=== PATIENT | male | born 1950 | race Caucasian/White ===

== ENCOUNTER 2021-07-20 08:41 | Inpatient (IN) ==
[2021-07-20] MEDS ORDERED: 0.9 % Sodium Chloride 1,000 ML IVC ONE ×3 (08:50→09:35)
[2021-07-20] MEDS ORDERED: 0.9 % Sodium Chloride 1,000 ML ONE ×3 (08:54→09:36)
[2021-07-20] MEDS ORDERED: Isovue-370 500 ML BOTTLE IVP ONE (08:59)
[2021-07-20 09:09] LABS: Basophils # 0.1 K/mcL (0.0-0.2); Basophils % 0.3 %; Eosinophils % 0.2 %; Hematocrit 21.6 % (37.5-50.1); Immature Granulocytes % 1.8 % (0-4); Lymphocytes # 1.4 K/mcL (0.6-4.6); Lymphocytes % 7.8 %; Mean Corpuscular HGB Conc 32.4 g/dL (31.6-35.5); Mean Corpuscular Hemoglobin 30.2 pg (28.0-33.3); Mean Corpuscular Volume 93.1 fL (83.0-100.0); Mean Platelet Volume 10.2 fL (9.4-12.4); Monocytes # 1.2 K/mcL (0.0-1.3); Monocytes % 6.5 %; Neutrophils # 15.1 K/mcL (1.6-8.9); Platelet Count 319 K/mcL (140-400); Red Blood Count 2.32 M/mcL (4.19-5.50); Red Cell Distribution Width 17.3 % (11.5-14.5); Segmented Neutrophils % 83.4 %; White Blood Count 18.1 K/mcL (4.3-11.1)
[2021-07-20] MEDS ORDERED: Vancomycin 1,500 MG/265 ML IV.SOLN IVPB ONE (09:35)
[2021-07-20] MEDS ORDERED: Piperacillin/Tazobactam 3.375 GM in 0.9 % Sodium Chloride Mini Bag 100 ML IVPB ONE (09:35)
[2021-07-20 09:44] LABS: Amorphous Sediment,Urine Few per hpf (None-Few); Bacteria,Urine Few per hpf (None-Few); Bilirubin,Urine Moderate (Negative); Blood,Urine Negative (Negative); Clarity,Urine Turbid (Clear); Color,Urine Dark-Yellow (Yellow); Glucose,Urine (UA) Normal (Normal); Hyaline Casts,Urine Few per lpf (None Seen); Ketones,Urine Negative (Negative); Leukocyte Esterase,Urine Negative (Negative); Mucus,Urine Few per lpf (None-Few); Nitrite,Urine Negative (Negative); Protein,Urine Trace mg/dL (Neg-Trace); RBC,Urine 0-3 per hpf (0-3); Specific Gravity,Urine 1.017 (1.010-1.025); Urobilinogen,Urine Normal (Normal); WBC,Urine 0-3 per hpf (0-3)
[2021-07-20] MEDS: Norepinephrine 4 MG/254 ML IV.SOLN IVC SCH ×4 (10:00→21:00)
[2021-07-20 10:02] LABS: Blood Urea Nitrogen > 130 mg/dL (8-23); Calcium 8.4 mg/dL (8.6-10.3); Carbon Dioxide 12 mEq/L (23-29); Chloride 102 mEq/L (98-107); Glucose 179 mg/dL (70-105); Potassium 6.8 mEq/L (3.5-5.1); Sodium 131 mEq/L (136-145); Troponin I 0.04 ng/mL (< 0.04); eGFR For African Americans 10 (> 60); eGFR For Non-African Americans 9 (> 60)
[2021-07-20] MEDS ORDERED: *HR* Dextrose 50 % in Water (Syg) 50 ML SYRINGE IVP ONE (10:09)
[2021-07-20] MEDS ORDERED: Insulin Human Regular 10 UNIT in 0.9 % Sodium Chloride 10 ML IV ONE (10:09)
[2021-07-20] MEDS ORDERED: Sodium Bicarbonate 50 MEQ/50 ML VIAL IVP ONE (10:09)
[2021-07-20 10:21] LABS: Influenza A PCR Negative (Negative); Influenza B PCR Negative (Negative); Resp. Syncytial Virus PCR Negative (Negative)
[2021-07-20 10:52] LABS: SARS-CoV-2 by PCR (In House) Negative (Negative)
[2021-07-20] MEDS ORDERED: 0.9 % Sodium Chloride 1,000 ML PRIME ONE ×2 (11:44)
[2021-07-20] MEDS ORDERED: *HR* Heparin 5,000 UNIT/ML VIAL IVP PRN (11:44)
[2021-07-20] MEDS ORDERED: *HR* Alteplase (Cathflo) 2 MG VIAL IVP PRN (11:44)
[2021-07-20] MEDS ORDERED: PrismaSATE BGK 4/2.5 5,000 ML CRRT SCH ×2 (11:45)
[2021-07-20] MEDS ORDERED: 0.9 % Sodium Chloride 1,000 ML PRIME SCH (11:45)
[2021-07-20] MEDS ORDERED: Naloxone 0.4 MG/ML INJ IVP PRN (12:04)
[2021-07-20] MEDS: *HR* OxyCODONE Immed Rel 5 MG TABLET PO PRN (12:09)
[2021-07-20] MEDS ORDERED: Ringers Solution, Lactated 1,000 ML IVC SCH (12:15)
[2021-07-20] MEDS: Albumin Human 5% 12.5 GM/250 ML IV.SOLN IVC SCH ×2 (12:20→16:14)
[2021-07-20] MEDS ORDERED: NON-FORMULARY MEDICATION 1 EACH EACH (Ipratropium/Albuterol Sulfate 120 PUFF Inhaler) IH SCH (13:00)
[2021-07-20 13:21] LABS: Alanine Aminotransferase 134 Units/L (7-52); Albumin 2.5 g/dL (3.5-5.7); Albumin/Globulin Ratio 0.9 (1.1-2.2); Alkaline Phosphatase 392 Units/L (34-104); Aspartate Amino Transferase 116 Units/L (13-39); Bilirubin,Direct 4.6 mg/dL (0.0-0.2); Bilirubin,Total 6.6 mg/dL (0.3-1.0); Blood Urea Nitrogen > 130 mg/dL (8-23); Calcium 7.1 mg/dL (8.6-10.3); Carbon Dioxide 12 mEq/L (23-29); Chloride 109 mEq/L (98-107); Globulin 2.7 g/dL (2.4-3.5); Glucose 165 mg/dL (70-105); Potassium 5.3 mEq/L (3.5-5.1); Sodium 137 mEq/L (136-145); Total Protein 5.2 g/dL (6.4-8.9); eGFR For African Americans 12 (> 60); eGFR For Non-African Americans 10 (> 60)
[2021-07-20] MEDS: Ondansetron 4 MG/2 ML VIAL IVP PRN (13:26)
[2021-07-20 13:51] LABS: Basophils % 0.1 %; Immature Granulocytes % 1.7 % (0-4); Mean Platelet Volume 10.5 fL (9.4-12.4)
[2021-07-20 13:53] LABS: Hematocrit 16.7 % (37.5-50.1); Lymphocytes # 0.9 K/mcL (0.6-4.6); Lymphocytes % 4.8 %; Mean Corpuscular HGB Conc 32.9 g/dL (31.6-35.5); Mean Corpuscular Hemoglobin 31.1 pg (28.0-33.3); Mean Corpuscular Volume 94.4 fL (83.0-100.0); Monocytes # 1.5 K/mcL (0.0-1.3); Monocytes % 8.1 %; Neutrophils # 15.4 K/mcL (1.6-8.9); Platelet Count 269 K/mcL (140-400); Red Blood Count 1.77 M/mcL (4.19-5.50); Red Cell Distribution Width 17.4 % (11.5-14.5); Segmented Neutrophils % 85.3 %
[2021-07-20 14:05] LABS: Hemoglobin 5.5 g/dL (12.9-16.9)
[2021-07-20] MEDS ORDERED: Sodium Bicarbonate 150 MEQ in D5% in Water 1,000 ML IVC SCH (14:15)
[2021-07-20] MEDS ORDERED: 0.9 % Sodium Chloride 250 ML ONE ×2 (14:31→19:52)
[2021-07-20 14:45] LABS: Anisocytosis 1+ (Not Present); Hypochromasia Present (Not Present); Platelet Estimate Normal (Normal)
[2021-07-20] MEDS: Ipratropium/Albuterol Neb 3 ML IH SCH ×2 (16:03→20:15)
[2021-07-20] MEDS ORDERED: Famotidine 20 MG/2 ML VIAL IVP SCH (18:00)
[2021-07-20] MEDS ORDERED: Prochlorperazine 10 MG/2 ML VIAL IVP PRN (18:21)
[2021-07-20] MEDS ORDERED: Chloraseptic Spray 177 ML BOTTLE MM PRN (18:35)
[2021-07-20 19:16] LABS: Hematocrit 18.3 % (37.5-50.1)
[2021-07-20] MEDS ORDERED: Pantoprazole 40 MG VIAL IVP SCH (19:20)
[2021-07-20] MEDS: Budesonide/Formoterol 160/4.5 1 PUFF INH IH SCH (20:14)
[2021-07-20] MEDS: Sodium Bicarbonate 150 MEQ in D5% in Water 1,000 ML IVC SCH (20:24)
[2021-07-20] MEDS ORDERED: Calcium Gluconate 1gm/50mL 1 GM/50 ML BAG IVPB ONE (20:38)
[2021-07-21] MEDS: Norepinephrine 4 MG/254 ML IV.SOLN IVC SCH ×6 (00:19→21:07)
[2021-07-21 00:45] LABS: Hemoglobin 6.4 g/dL (12.9-16.9)
[2021-07-21 01:18] LABS: Blood Urea Nitrogen > 130 mg/dL (8-23); Calcium 7.1 mg/dL (8.6-10.3); Carbon Dioxide 15 mEq/L (23-29); Chloride 111 mEq/L (98-107); Glucose 186 mg/dL (70-105); Potassium 5.5 mEq/L (3.5-5.1); Sodium 137 mEq/L (136-145); eGFR For African Americans 13 (> 60); eGFR For Non-African Americans 10 (> 60)
[2021-07-21] MEDS ORDERED: 0.9 % Sodium Chloride 1,000 ML IVC ONE (01:41)
[2021-07-21] MEDS: Albumin Human 5% 12.5 GM/250 ML IV.SOLN IVC SCH ×2 (03:08→07:19)
[2021-07-21] MEDS: Ipratropium/Albuterol Neb 3 ML IH SCH ×4 (03:46→20:02)
[2021-07-21] MEDS ORDERED: Octreotide 50 MCG/ML INJ IVP ONE (03:56)
[2021-07-21] MEDS: Octreotide 400 MCG in 0.9 % Sodium Chloride 100 ML IVC SCH ×2 (04:58→20:30)
[2021-07-21 05:38] LABS: VBG Ionized Calcium 0.98 mmol/L (1.15-1.35)
[2021-07-21 05:41] LABS: Basophils # 0.1 K/mcL (0.0-0.2); Basophils % 0.2 %; Eosinophils % 0.1 %; Hematocrit 18.5 % (37.5-50.1); Hemoglobin 6.2 g/dL (12.9-16.9); Immature Granulocytes % 2.4 % (0-4); Lymphocytes # 0.9 K/mcL (0.6-4.6); Lymphocytes % 4.2 %; Mean Corpuscular HGB Conc 33.5 g/dL (31.6-35.5); Mean Corpuscular Volume 89.4 fL (83.0-100.0); Mean Platelet Volume 10.4 fL (9.4-12.4); Monocytes % 9.7 %; Neutrophils # 17.3 K/mcL (1.6-8.9); Nucleated Red Blood Cells 0.5 /100 WBC (0); Platelet Count 238 K/mcL (140-400); Red Blood Count 2.07 M/mcL (4.19-5.50); Red Cell Distribution Width 16.6 % (11.5-14.5); Segmented Neutrophils % 83.4 %; White Blood Count 20.8 K/mcL (4.3-11.1)
[2021-07-21] MEDS: Sodium Bicarbonate 150 MEQ in D5% in Water 1,000 ML IVC SCH ×2 (06:01→16:06)
[2021-07-21] MEDS: Pantoprazole 40 MG in 0.9 % Sodium Chloride Mini Bag 100 ML IVC SCH ×4 (06:04→20:52)
[2021-07-21] MEDS: Calcium Gluconate 1gm/50mL 1 GM/50 ML BAG IVPB SCH ×2 (06:34→07:25)
[2021-07-21 07:04] LABS: Alanine Aminotransferase 158 Units/L (7-52); Albumin 2.7 g/dL (3.5-5.7); Albumin/Globulin Ratio 1.2 (1.1-2.2); Alkaline Phosphatase 372 Units/L (34-104); Aspartate Amino Transferase 180 Units/L (13-39); Bilirubin,Total 6.9 mg/dL (0.3-1.0); Blood Urea Nitrogen > 130 mg/dL (8-23); Calcium 7.1 mg/dL (8.6-10.3); Carbon Dioxide 17 mEq/L (23-29); Chloride 110 mEq/L (98-107); Globulin 2.3 g/dL (2.4-3.5); Glucose 192 mg/dL (70-105); Magnesium 2.1 mg/dL (1.6-2.6); Phosphorous 4.1 mg/dL (2.7-4.5); Potassium 5.1 mEq/L (3.5-5.1); Sodium 139 mEq/L (136-145); eGFR For African Americans 13 (> 60); eGFR For Non-African Americans 11 (> 60)
[2021-07-21] MEDS ORDERED: 0.9 % Sodium Chloride 250 ML ONE ×2 (08:59→17:12)
[2021-07-21] MEDS: Budesonide/Formoterol 160/4.5 1 PUFF INH IH SCH ×2 (10:26→20:02)
[2021-07-21 11:32] LABS: Phenytoin (Dilantin) < 0.5 mcg/mL (10.0-20.0)
[2021-07-21] MEDS: Phenytoin 100 MG in Equashield Syringe 1 EACH IVP SCH (13:41)
[2021-07-21] MEDS: Cyanocobalamin (B-12) 1,000 MCG TABLET PO SCH (13:50)
[2021-07-21] MEDS: Levothyroxine Sodium 100 MCG VIAL IVP SCH (14:00)
[2021-07-21 15:34] LABS: Hematocrit 18.1 % (37.5-50.1); Hemoglobin 6.2 g/dL (12.9-16.9)
[2021-07-21 15:48] LABS: Blood Urea Nitrogen > 130 mg/dL (8-23); Calcium 7.3 mg/dL (8.6-10.3); Carbon Dioxide 22 mEq/L (23-29); Chloride 108 mEq/L (98-107); Glucose 215 mg/dL (70-105); Potassium 4.6 mEq/L (3.5-5.1); Sodium 141 mEq/L (136-145); eGFR For African Americans 14 (> 60); eGFR For Non-African Americans 11 (> 60)
[2021-07-22 00:38] LABS: VBG Ionized Calcium 0.97 mmol/L (1.15-1.35)
[2021-07-22] MEDS ORDERED: Calcium Chloride 2,000 MG in 0.9 % Sodium Chloride 100 ML IVPB ONE (00:48)
[2021-07-22 00:54] LABS: Blood Urea Nitrogen > 130 mg/dL (8-23); Calcium 7.1 mg/dL (8.6-10.3); Carbon Dioxide 23 mEq/L (23-29); Chloride 110 mEq/L (98-107); Glucose 208 mg/dL (70-105); Potassium 4.2 mEq/L (3.5-5.1); Sodium 141 mEq/L (136-145); eGFR For African Americans 15 (> 60); eGFR For Non-African Americans 12 (> 60)
[2021-07-22 00:57] LABS: Hematocrit 21.7 % (37.5-50.1); Hemoglobin 7.1 g/dL (12.9-16.9)
[2021-07-22] MEDS: Phenytoin 100 MG in Equashield Syringe 1 EACH IVP SCH ×2 (00:59→14:53)
[2021-07-22] MEDS: Pantoprazole 40 MG in 0.9 % Sodium Chloride Mini Bag 100 ML IVC SCH ×5 (01:28→21:20)
[2021-07-22] MEDS: Sodium Bicarbonate 150 MEQ in D5% in Water 1,000 ML IVC SCH ×3 (02:07→21:11)
[2021-07-22] MEDS: Ipratropium/Albuterol Neb 3 ML IH SCH ×4 (03:56→22:00)
[2021-07-22 04:47] LABS: Alanine Aminotransferase 201 Units/L (7-52); Albumin 2.5 g/dL (3.5-5.7); Albumin/Globulin Ratio 1.3 (1.1-2.2); Alkaline Phosphatase 404 Units/L (34-104); Aspartate Amino Transferase 240 Units/L (13-39); Bilirubin,Direct 5.3 mg/dL (0.0-0.2); Bilirubin,Total 7.3 mg/dL (0.3-1.0); Blood Urea Nitrogen > 130 mg/dL (8-23); Calcium 8.3 mg/dL (8.6-10.3); Carbon Dioxide 26 mEq/L (23-29); Chloride 108 mEq/L (98-107); Globulin 1.9 g/dL (2.4-3.5); Glucose 192 mg/dL (70-105); Magnesium 1.9 mg/dL (1.6-2.6); Phosphorous 4.9 mg/dL (2.7-4.5); Potassium 4.3 mEq/L (3.5-5.1); Sodium 143 mEq/L (136-145); Total Protein 4.4 g/dL (6.4-8.9); eGFR For African Americans 16 (> 60); eGFR For Non-African Americans 13 (> 60)
[2021-07-22 04:53] LABS: Basophils % 0.2 %; Eosinophils # 0.1 K/mcL (0.0-0.6); Eosinophils % 0.5 %; Hematocrit 20.5 % (37.5-50.1); Hemoglobin 6.7 g/dL (12.9-16.9); Immature Granulocytes % 2.2 % (0-4); Lymphocytes # 0.8 K/mcL (0.6-4.6); Lymphocytes % 4.1 %; Mean Corpuscular HGB Conc 32.7 g/dL (31.6-35.5); Mean Corpuscular Hemoglobin 27.7 pg (28.0-33.3); Mean Corpuscular Volume 84.7 fL (83.0-100.0); Monocytes # 1.5 K/mcL (0.0-1.3); Monocytes % 7.9 %; Neutrophils # 15.8 K/mcL (1.6-8.9); Nucleated Red Blood Cells 0.8 /100 WBC (0); Platelet Count 150 K/mcL (140-400); Red Blood Count 2.42 M/mcL (4.19-5.50); Red Cell Distribution Width 18.1 % (11.5-14.5); Segmented Neutrophils % 85.1 %; White Blood Count 18.6 K/mcL (4.3-11.1)
[2021-07-22] MEDS: Norepinephrine 4 MG/254 ML IV.SOLN IVC SCH ×2 (05:04→16:30)
[2021-07-22] MEDS: Budesonide/Formoterol 160/4.5 1 PUFF INH IH SCH ×2 (07:46→22:01)
[2021-07-22] MEDS ORDERED: 0.9 % Sodium Chloride 250 ML ONE (08:28)
[2021-07-22] MEDS: Cyanocobalamin (B-12) 1,000 MCG TABLET PO SCH (08:46)
[2021-07-22] MEDS: Levothyroxine Sodium 100 MCG VIAL IVP SCH (08:48)
[2021-07-22] MEDS: Octreotide 400 MCG in 0.9 % Sodium Chloride 100 ML IVC SCH (10:57)
[2021-07-22] MEDS: Piperacillin/Tazobactam 3.375 GM in 0.9 % Sodium Chloride Mini Bag 100 ML IVPB SCH ×2 (11:06→23:43)
[2021-07-22] MEDS ORDERED: *HR* FentaNYL (PF) 100 MCG/2 ML VIAL ONE (11:06)
[2021-07-22] MEDS ORDERED: *HR* Propofol 200 MG/20 ML VIAL IVP ONE (11:06)
[2021-07-22] MEDS ORDERED: Lidocaine -MPF 2% 5 ML VIAL ONE (11:07)
[2021-07-22] MEDS ORDERED: Ondansetron 4 MG/2 ML VIAL ONE (11:07)
[2021-07-22] MEDS ORDERED: *HR* Succinylcholine 200 MG/10 ML VIAL IVP ONE (11:07)
[2021-07-22] MEDS ORDERED: Lidocaine HCL 4 ML Topical Solution (Laryng-O-Jet Kit Sterile Pak) TP ONE (11:12)
[2021-07-22 12:26] LABS: INR 24.2
[2021-07-22] MEDS ORDERED: HUM PROTHROMBIN CPLX(PCC)4FACT 5,000 UNIT in Water for inj. (sterile) 200 ML IVPB ONE (12:32)
[2021-07-22 14:42] LABS: INR 17.5; Prothrombin Time 190.6 Seconds (9.4-12.1)
[2021-07-22 14:56] LABS: Activated Partial Thrombo Time 61.7 Seconds (26.0-36.0)
[2021-07-22 18:21] LABS: Basophils % 0.3 %; Eosinophils % 1.1 %; Immature Granulocytes % 2.8 % (0-4); Mean Corpuscular HGB Conc 34.3 g/dL (31.6-35.5); Nucleated Red Blood Cells 0.8 /100 WBC (0)
[2021-07-22 18:23] LABS: Eosinophils # 0.1 K/mcL (0.0-0.6); Hemoglobin 7.2 g/dL (12.9-16.9); Immature Platelets 2.7 % (1.1-6.1); Lymphocytes # 0.6 K/mcL (0.6-4.6); Lymphocytes % 4.5 %; Mean Corpuscular Hemoglobin 28.8 pg (28.0-33.3); Mean Platelet Volume 9.7 fL (9.4-12.4); Monocytes # 0.9 K/mcL (0.0-1.3); Monocytes % 6.9 %; Platelet Count 104 K/mcL (140-400); Red Cell Distribution Width 16.3 % (11.5-14.5); Segmented Neutrophils % 84.4 %
[2021-07-22 18:34] LABS: INR 1.6; Prothrombin Time 18.3 Seconds (9.4-12.1)
[2021-07-22] MEDS: *HR* OxyCODONE Immed Rel 5 MG TABLET PO PRN (19:38)
[2021-07-23] MEDS: Phenytoin 100 MG in Equashield Syringe 1 EACH IVP SCH ×3 (00:07→23:47)
[2021-07-23] MEDS: Pantoprazole 40 MG in 0.9 % Sodium Chloride Mini Bag 100 ML IVC SCH ×5 (02:26→23:46)
[2021-07-23] MEDS: Ipratropium/Albuterol Neb 3 ML IH SCH ×4 (03:34→21:29)
[2021-07-23 04:43] LABS: Basophils % 0.2 %; Eosinophils # 0.2 K/mcL (0.0-0.6); Eosinophils % 1.3 %; Hematocrit 20.9 % (37.5-50.1); Hemoglobin 7.1 g/dL (12.9-16.9); Immature Granulocytes % 2.7 % (0-4); Immature Platelets 3.2 % (1.1-6.1); Lymphocytes # 0.6 K/mcL (0.6-4.6); Lymphocytes % 5.1 %; Mean Corpuscular Hemoglobin 28.6 pg (28.0-33.3); Mean Corpuscular Volume 84.3 fL (83.0-100.0); Mean Platelet Volume 9.7 fL (9.4-12.4); Neutrophils # 10.3 K/mcL (1.6-8.9); Nucleated Red Blood Cells 0.7 /100 WBC (0); Red Blood Count 2.48 M/mcL (4.19-5.50); Red Cell Distribution Width 16.3 % (11.5-14.5); Segmented Neutrophils % 82.7 %; White Blood Count 12.5 K/mcL (4.3-11.1)
[2021-07-23 04:44] LABS: Platelet Count 88 K/mcL (140-400)
[2021-07-23 04:46] LABS: VBG Ionized Calcium 1.02 mmol/L (1.15-1.35)
[2021-07-23 04:49] LABS: INR 1.3; Prothrombin Time 14.1 Seconds (9.4-12.1)
[2021-07-23 05:23] LABS: Albumin 2.6 g/dL (3.5-5.7); Albumin/Globulin Ratio 1.3 (1.1-2.2); Bilirubin,Total 10.1 mg/dL (0.3-1.0); Calcium 7.5 mg/dL (8.6-10.3); Magnesium 1.6 mg/dL (1.6-2.6); Phosphorous 4.1 mg/dL (2.7-4.5); Potassium 3.6 mEq/L (3.5-5.1); Total Protein 4.6 g/dL (6.4-8.9)
[2021-07-23] MEDS: Norepinephrine 4 MG/254 ML IV.SOLN IVC SCH (06:43)
[2021-07-23] MEDS: Sodium Bicarbonate 150 MEQ in D5% in Water 1,000 ML IVC SCH ×2 (06:44→16:20)
[2021-07-23] MEDS: Octreotide 400 MCG in 0.9 % Sodium Chloride 100 ML IVC SCH ×2 (06:50→23:45)
[2021-07-23] MEDS: Levothyroxine Sodium 100 MCG VIAL IVP SCH (07:56)
[2021-07-23] MEDS ORDERED: Calcium Gluconate 1gm/50mL 1 GM/50 ML BAG IVPB ONE (08:59)
[2021-07-23] MEDS: Budesonide/Formoterol 160/4.5 1 PUFF INH IH SCH ×2 (09:44→21:29)
[2021-07-23] MEDS: Cyanocobalamin (B-12) 1,000 MCG TABLET PO SCH (10:35)
[2021-07-23] MEDS: Piperacillin/Tazobactam 3.375 GM in 0.9 % Sodium Chloride Mini Bag 100 ML IVPB SCH ×2 (12:03→23:49)
[2021-07-23] MEDS: Famotidine 20 MG/2 ML VIAL IVP SCH (19:14)
[2021-07-23] MEDS: Ondansetron 4 MG/2 ML VIAL IVP PRN (22:11)
[2021-07-23] MEDS: *HR* OxyCODONE Immed Rel 5 MG TABLET PO PRN (22:11)
[2021-07-24] MEDS: Sodium Bicarbonate 150 MEQ in D5% in Water 1,000 ML IVC SCH (01:32)
[2021-07-24] MEDS: Ipratropium/Albuterol Neb 3 ML IH SCH ×4 (03:23→19:58)
[2021-07-24] MEDS: Famotidine 20 MG/2 ML VIAL IVP SCH ×2 (04:53→17:41)
[2021-07-24] MEDS: Pantoprazole 40 MG in 0.9 % Sodium Chloride Mini Bag 100 ML IVC SCH (04:57)
[2021-07-24 05:10] LABS: Basophils % 0.2 %
[2021-07-24 05:12] LABS: Eosinophils # 0.1 K/mcL (0.0-0.6); Hematocrit 23.7 % (37.5-50.1); Hemoglobin 7.9 g/dL (12.9-16.9); Immature Granulocytes % 2.4 % (0-4); Immature Platelets 6.3 % (1.1-6.1); Lymphocytes # 0.5 K/mcL (0.6-4.6); Lymphocytes % 4.3 %; Mean Corpuscular HGB Conc 33.3 g/dL (31.6-35.5); Mean Corpuscular Hemoglobin 28.9 pg (28.0-33.3); Mean Corpuscular Volume 86.8 fL (83.0-100.0); Mean Platelet Volume 10.8 fL (9.4-12.4); Monocytes % 6.6 %; Neutrophils # 9.7 K/mcL (1.6-8.9); Nucleated Red Blood Cells 0.3 /100 WBC (0); Red Blood Count 2.73 M/mcL (4.19-5.50); Red Cell Distribution Width 16.8 % (11.5-14.5); Segmented Neutrophils % 85.5 %; White Blood Count 11.3 K/mcL (4.3-11.1)
[2021-07-24 05:14] LABS: Monocytes # 0.8 K/mcL (0.0-1.3); Platelet Count 79 K/mcL (140-400)
[2021-07-24 05:22] LABS: INR 1.2; Prothrombin Time 13.2 Seconds (9.4-12.1)
[2021-07-24 05:29] LABS: Albumin 2.6 g/dL (3.5-5.7); Albumin/Globulin Ratio 1.1 (1.1-2.2); Bilirubin,Indirect 3.4 mg/dL (0.0-1.0); Bilirubin,Total 10.4 mg/dL (0.3-1.0); Calcium 7.6 mg/dL (8.6-10.3); Globulin 2.4 g/dL (2.4-3.5); Magnesium 1.8 mg/dL (1.6-2.6); Phosphorous 3.9 mg/dL (2.7-4.5); Potassium 3.2 mEq/L (3.5-5.1)
[2021-07-24 05:54] LABS: VBG Ionized Calcium 1.03 mmol/L (1.15-1.35)
[2021-07-24] MEDS: Ondansetron 4 MG/2 ML VIAL IVP PRN (05:56)
[2021-07-24] MEDS: Levothyroxine Sodium 100 MCG VIAL IVP SCH (07:55)
[2021-07-24] MEDS: Cyanocobalamin (B-12) 1,000 MCG TABLET PO SCH (07:55)
[2021-07-24] MEDS: Budesonide/Formoterol 160/4.5 1 PUFF INH IH SCH ×2 (08:29→19:58)
[2021-07-24] MEDS ORDERED: Pantoprazole 40 MG in 0.9 % Sodium Chloride 50 ML IVPB ONE (09:23)
[2021-07-24] MEDS ORDERED: Pantoprazole 40 MG VIAL IVP SCH (10:30)
[2021-07-24] MEDS: Piperacillin/Tazobactam 3.375 GM in 0.9 % Sodium Chloride Mini Bag 100 ML IVPB SCH (11:28)
[2021-07-24] MEDS: Phenytoin 100 MG in Equashield Syringe 1 EACH IVP SCH (11:37)
[2021-07-24] MEDS ORDERED: Chloraseptic Spray 177 ML BOTTLE MM PRN (11:39)
[2021-07-24] MEDS ORDERED: Naloxone 0.4 MG/ML INJ IVP PRN (11:39)
[2021-07-24] MEDS ORDERED: *HR* OxyCODONE Immed Rel 5 MG TABLET PO PRN (11:39)
[2021-07-24] MEDS ORDERED: Prochlorperazine 10 MG/2 ML VIAL IVP PRN (11:39)
[2021-07-24] MEDS: D5% in 0.45% NACL w KCl 20 MEQ/1,000 ML MLS IVC SCH (12:13)
[2021-07-24 13:01] LABS: Phenytoin (Dilantin) Free <0.5 ug/mL (1.0-2.5)
[2021-07-24] MEDS: Pantoprazole 40 MG VIAL IVP SCH (17:40)
[2021-07-24] MEDS ORDERED: Famotidine 20 MG/2 ML VIAL IVP SCH (20:00)
[2021-07-24] MEDS ORDERED: Piperacillin/Tazobactam 3.375 GM in 0.9 % Sodium Chloride Mini Bag 100 ML IVPB SCH (23:00)
[2021-07-25] MEDS: Phenytoin 100 MG in Equashield Syringe 1 EACH IVP SCH ×3 (00:44→23:25)
[2021-07-25] MEDS: D5% in 0.45% NACL w KCl 20 MEQ/1,000 ML MLS IVC SCH ×2 (00:45→21:20)
[2021-07-25] MEDS: Ipratropium/Albuterol Neb 3 ML IH SCH ×4 (03:54→21:27)
[2021-07-25 04:55] LABS: Basophils % 0.2 %; Red Cell Distribution Width 17.2 % (11.5-14.5); White Blood Count 12.3 K/mcL (4.3-11.1)
[2021-07-25 04:57] LABS: Eosinophils # 0.3 K/mcL (0.0-0.6); Eosinophils % 2.6 %; Hematocrit 24.8 % (37.5-50.1); Hemoglobin 7.8 g/dL (12.9-16.9); Immature Granulocytes % 2.5 % (0-4); Immature Platelets 6.6 % (1.1-6.1); Lymphocytes # 0.6 K/mcL (0.6-4.6); Lymphocytes % 5.1 %; Mean Corpuscular HGB Conc 31.5 g/dL (31.6-35.5); Mean Corpuscular Hemoglobin 28.2 pg (28.0-33.3); Mean Corpuscular Volume 89.5 fL (83.0-100.0); Mean Platelet Volume 10.9 fL (9.4-12.4); Monocytes # 0.8 K/mcL (0.0-1.3); Monocytes % 6.8 %; Neutrophils # 10.2 K/mcL (1.6-8.9); Nucleated Red Blood Cells 0.4 /100 WBC (0); Platelet Count 102 K/mcL (140-400); Red Blood Count 2.77 M/mcL (4.19-5.50); Segmented Neutrophils % 82.8 %
[2021-07-25] MEDS: Famotidine 20 MG/2 ML VIAL IVP SCH (05:08)
[2021-07-25] MEDS: Pantoprazole 40 MG VIAL IVP SCH ×2 (05:08→17:17)
[2021-07-25 05:15] LABS: Albumin 2.6 g/dL (3.5-5.7); Bilirubin,Total 10.5 mg/dL (0.3-1.0); Globulin 2.6 g/dL (2.4-3.5); Potassium 3.3 mEq/L (3.5-5.1); Total Protein 5.2 g/dL (6.4-8.9)
[2021-07-25] MEDS ORDERED: Levothyroxine Sodium 100 MCG VIAL IVP SCH (09:00)
[2021-07-25] MEDS: Cyanocobalamin (B-12) 1,000 MCG TABLET PO SCH (09:08)
[2021-07-25] MEDS: Budesonide/Formoterol 160/4.5 1 PUFF INH IH SCH ×2 (09:47→21:28)
[2021-07-25] MEDS: Piperacillin/Tazobactam 3.375 GM in 0.9 % Sodium Chloride Mini Bag 100 ML IVPB SCH ×2 (11:24→17:18)
[2021-07-25] MEDS ORDERED: Prochlorperazine 10 MG/2 ML VIAL IVP PRN (13:45)
[2021-07-25] MEDS ORDERED: *HR* Propofol 200 MG/20 ML VIAL IVP ONE (18:23)
[2021-07-25] MEDS ORDERED: Lidocaine HCL 4 ML Topical Solution (Laryng-O-Jet Kit Sterile Pak) TP ONE (18:24)
[2021-07-25] MEDS ORDERED: *HR* Norepinephrine 4 MG/4 ML VIAL IVC ONE (19:09)
[2021-07-25] MEDS ORDERED: Albumin Human 5% 12.5 GM/250 ML IV.SOLN ONE (19:14)
[2021-07-25] MEDS ORDERED: *HR* Vasopressin 20 UNIT/ML VIAL ONE (19:19)
[2021-07-26] MEDS: Piperacillin/Tazobactam 3.375 GM in 0.9 % Sodium Chloride Mini Bag 100 ML IVPB SCH ×3 (02:57→19:01)
[2021-07-26] MEDS: Ipratropium/Albuterol Neb 3 ML IH SCH ×4 (03:26→20:16)
[2021-07-26 03:52] LABS: % Iron Saturation 33 % (20-55); Iron 67 mcg/dL (65-175); Transferrin 143 mg/dL (203-362)
[2021-07-26] MEDS: Pantoprazole 40 MG VIAL IVP SCH ×2 (05:32→17:41)
[2021-07-26] MEDS: Cyanocobalamin (B-12) 1,000 MCG TABLET PO SCH (09:11)
[2021-07-26] MEDS: Budesonide/Formoterol 160/4.5 1 PUFF INH IH SCH ×2 (10:57→20:15)
[2021-07-26] MEDS: Phenytoin 100 MG in Equashield Syringe 1 EACH IVP SCH (10:58)
[2021-07-26 14:42] LABS: Hematocrit 23.7 % (37.5-50.1); Hemoglobin 7.3 g/dL (12.9-16.9); Mean Corpuscular HGB Conc 30.8 g/dL (31.6-35.5); Mean Corpuscular Hemoglobin 28.7 pg (28.0-33.3); Mean Corpuscular Volume 93.3 fL (83.0-100.0); Platelet Count 112 K/mcL (140-400); Red Blood Count 2.54 M/mcL (4.19-5.50); Red Cell Distribution Width 18.8 % (11.5-14.5)
[2021-07-26 15:00] LABS: Albumin 2.8 g/dL (3.5-5.7); Albumin/Globulin Ratio 1.2 (1.1-2.2); Calcium 8.4 mg/dL (8.6-10.3); Globulin 2.4 g/dL (2.4-3.5); Potassium 3.5 mEq/L (3.5-5.1); Total Protein 5.2 g/dL (6.4-8.9)
[2021-07-26] MEDS: D5% in 0.45% NACL w KCl 20 MEQ/1,000 ML MLS IVC SCH (15:56)
[2021-07-26] MEDS: Ondansetron 4 MG/2 ML VIAL IVP PRN (20:43)
[2021-07-26] MEDS ORDERED: Melatonin 3 MG TABLET PO ONE (22:51)
[2021-07-27] MEDS: Phenytoin 100 MG in Equashield Syringe 1 EACH IVP SCH ×2 (00:06→11:45)
[2021-07-27] MEDS: Piperacillin/Tazobactam 3.375 GM in 0.9 % Sodium Chloride Mini Bag 100 ML IVPB SCH ×3 (03:29→18:41)
[2021-07-27] MEDS: Ipratropium/Albuterol Neb 3 ML IH SCH ×4 (03:32→20:02)
[2021-07-27 05:19] LABS: Basophils % 0.2 %; Eosinophils # 0.2 K/mcL (0.0-0.6); Eosinophils % 1.6 %; Hematocrit 23.9 % (37.5-50.1); Hemoglobin 7.5 g/dL (12.9-16.9); Immature Granulocytes % 2.1 % (0-4); Lymphocytes # 0.5 K/mcL (0.6-4.6); Lymphocytes % 3.6 %; Mean Corpuscular HGB Conc 31.4 g/dL (31.6-35.5); Mean Corpuscular Hemoglobin 29.1 pg (28.0-33.3); Mean Corpuscular Volume 92.6 fL (83.0-100.0); Mean Platelet Volume 10.4 fL (9.4-12.4); Monocytes # 0.6 K/mcL (0.0-1.3); Monocytes % 4.2 %; Neutrophils # 12.9 K/mcL (1.6-8.9); Platelet Count 131 K/mcL (140-400); Red Blood Count 2.58 M/mcL (4.19-5.50); Red Cell Distribution Width 19.2 % (11.5-14.5); Segmented Neutrophils % 88.3 %; White Blood Count 14.6 K/mcL (4.3-11.1)
[2021-07-27 05:39] LABS: Albumin 2.7 g/dL (3.5-5.7); Calcium 8.2 mg/dL (8.6-10.3); Globulin 2.7 g/dL (2.4-3.5); Potassium 3.6 mEq/L (3.5-5.1); Total Protein 5.4 g/dL (6.4-8.9)
[2021-07-27] MEDS: Pantoprazole 40 MG VIAL IVP SCH ×2 (06:43→17:11)
[2021-07-27] MEDS: D5% in 0.45% NACL w KCl 20 MEQ/1,000 ML MLS IVC SCH ×3 (07:08→21:59)
[2021-07-27] MEDS: Budesonide/Formoterol 160/4.5 1 PUFF INH IH SCH ×2 (07:22→20:02)
[2021-07-27] MEDS: Cyanocobalamin (B-12) 1,000 MCG TABLET PO SCH (08:16)
[2021-07-27] MEDS: Ondansetron 4 MG/2 ML VIAL IVP PRN (10:38)
[2021-07-27] MEDS: Metoclopramide 10 MG/2 ML VIAL IVP SCH (17:11)
[2021-07-28] MEDS: Phenytoin 100 MG in Equashield Syringe 1 EACH IVP SCH (00:03)
[2021-07-28] MEDS: Metoclopramide 10 MG/2 ML VIAL IVP SCH (00:03)
[2021-07-28] MEDS: Piperacillin/Tazobactam 3.375 GM in 0.9 % Sodium Chloride Mini Bag 100 ML IVPB SCH ×3 (03:32→20:06)
[2021-07-28] MEDS: Ipratropium/Albuterol Neb 3 ML IH SCH ×4 (03:38→20:55)
[2021-07-28] MEDS: Pantoprazole 40 MG VIAL IVP SCH ×2 (04:47→17:16)
[2021-07-28] MEDS: Ondansetron 4 MG/2 ML VIAL IVP PRN (04:50)
[2021-07-28] MEDS: Cyanocobalamin (B-12) 1,000 MCG TABLET PO SCH (08:53)
[2021-07-28] MEDS: D5% in 0.45% NACL w KCl 20 MEQ/1,000 ML MLS IVC SCH (08:53)
[2021-07-28] MEDS: polyethylene glycoL 3350 17 GM POWD.PACK PO SCH ×2 (09:42→20:07)
[2021-07-28] MEDS ORDERED: Ringers Solution, Lactated 1,000 ML IVC SCH (10:45)
[2021-07-28] MEDS: Budesonide/Formoterol 160/4.5 1 PUFF INH IH SCH ×2 (12:07→20:56)
[2021-07-28 13:54] LABS: Basophils % 0.2 %; Eosinophils # 0.1 K/mcL (0.0-0.6); Eosinophils % 0.4 %; Hematocrit 24.7 % (37.5-50.1); Hemoglobin 7.4 g/dL (12.9-16.9); Immature Granulocytes % 1.1 % (0-4); Lymphocytes # 0.5 K/mcL (0.6-4.6); Mean Corpuscular Hemoglobin 28.6 pg (28.0-33.3); Mean Corpuscular Volume 95.4 fL (83.0-100.0); Mean Platelet Volume 10.4 fL (9.4-12.4); Monocytes # 0.6 K/mcL (0.0-1.3); Monocytes % 3.7 %; Neutrophils # 15.5 K/mcL (1.6-8.9); Platelet Count 143 K/mcL (140-400); Red Blood Count 2.59 M/mcL (4.19-5.50); Red Cell Distribution Width 19.9 % (11.5-14.5); Segmented Neutrophils % 91.6 %; White Blood Count 16.9 K/mcL (4.3-11.1)
[2021-07-28 14:29] LABS: Albumin 2.9 g/dL (3.5-5.7); Bilirubin,Total 4.5 mg/dL (0.3-1.0); Calcium 8.3 mg/dL (8.6-10.3); Globulin 2.9 g/dL (2.4-3.5); Potassium 3.6 mEq/L (3.5-5.1); Total Protein 5.8 g/dL (6.4-8.9)
[2021-07-29] MEDS: D5% in 0.45% NACL w KCl 20 MEQ/1,000 ML MLS IVC SCH ×2 (02:18→15:42)
[2021-07-29 03:01] LABS: Basophils % 0.2 %; Eosinophils # 0.2 K/mcL (0.0-0.6); Eosinophils % 1.8 %; Hematocrit 22.4 % (37.5-50.1); Hemoglobin 6.9 g/dL (12.9-16.9); Immature Granulocytes % 0.5 % (0-4); Lymphocytes # 0.5 K/mcL (0.6-4.6); Lymphocytes % 5.6 %; Mean Corpuscular HGB Conc 30.8 g/dL (31.6-35.5); Mean Corpuscular Hemoglobin 29.7 pg (28.0-33.3); Mean Corpuscular Volume 96.6 fL (83.0-100.0); Monocytes # 0.6 K/mcL (0.0-1.3); Platelet Count 128 K/mcL (140-400); Red Blood Count 2.32 M/mcL (4.19-5.50); Red Cell Distribution Width 20.2 % (11.5-14.5); Segmented Neutrophils % 85.9 %; White Blood Count 9.6 K/mcL (4.3-11.1)
[2021-07-29 03:02] LABS: Neutrophils # 8.3 K/mcL (1.6-8.9)
[2021-07-29 03:29] LABS: Albumin 2.7 g/dL (3.5-5.7); Bilirubin,Total 3.8 mg/dL (0.3-1.0); Globulin 2.8 g/dL (2.4-3.5); Potassium 3.4 mEq/L (3.5-5.1); Total Protein 5.5 g/dL (6.4-8.9)
[2021-07-29 03:31] LABS: Magnesium 2.1 mg/dL (1.6-2.6); Phosphorous 3.4 mg/dL (2.7-4.5)
[2021-07-29] MEDS: Ipratropium/Albuterol Neb 3 ML IH SCH ×4 (03:55→20:04)
[2021-07-29] MEDS: Pantoprazole 40 MG VIAL IVP SCH ×2 (05:17→18:09)
[2021-07-29] MEDS: Piperacillin/Tazobactam 3.375 GM in 0.9 % Sodium Chloride Mini Bag 100 ML IVPB SCH ×3 (05:17→20:09)
[2021-07-29] MEDS: Budesonide/Formoterol 160/4.5 1 PUFF INH IH SCH ×2 (07:55→20:05)
[2021-07-29] MEDS ORDERED: Saliva Stimulant 44.3ml BOTTLE PO PRN (08:30)
[2021-07-29] MEDS ORDERED: D10% in Water 500 ML IVC PRN (11:02)
[2021-07-29] MEDS ORDERED: Fat Emulsion 250 ML IVPB SCH (11:15)
[2021-07-29] MEDS ORDERED: D5% in Water 1,000 ML IVC PRN (11:18)
[2021-07-29] MEDS ORDERED: Dextrose Gel 15 GM/37.5 ML TUBE PO PRN ×2 (11:18)
[2021-07-29] MEDS ORDERED: *HR* Dextrose 50 % in Water (Syg) 50 ML SYRINGE IVP PRN (11:18)
[2021-07-29] MEDS: Insulin LISPRO 300 UNITS/3 ML VIAL SUBQ SCH ×3 (13:05→21:33)
[2021-07-29] MEDS: Cyanocobalamin (B-12) 1,000 MCG TABLET PO SCH (13:05)
[2021-07-29] MEDS: polyethylene glycoL 3350 17 GM POWD.PACK PO SCH (13:57)
[2021-07-29] MEDS ORDERED: Clinimix E 5%-15% SOLUTION 2,000 ML with MVI, adult with vitamin K 10 ML IVC SCH (17:00)
[2021-07-30] MEDS: Insulin LISPRO 300 UNITS/3 ML VIAL SUBQ SCH ×6 (00:25→21:15)
[2021-07-30] MEDS: Piperacillin/Tazobactam 3.375 GM in 0.9 % Sodium Chloride Mini Bag 100 ML IVPB SCH ×2 (02:10→12:09)
[2021-07-30] MEDS: Ipratropium/Albuterol Neb 3 ML IH SCH ×4 (03:42→21:12)
[2021-07-30] MEDS: Pantoprazole 40 MG VIAL IVP SCH ×2 (05:14→17:01)
[2021-07-30 06:42] LABS: Hematocrit 22.5 % (37.5-50.1); Hemoglobin 6.6 g/dL (12.9-16.9)
[2021-07-30 06:55] LABS: Albumin 2.6 g/dL (3.5-5.7); Albumin/Globulin Ratio 0.9 (1.1-2.2); Bilirubin,Total 2.9 mg/dL (0.3-1.0); Phosphorous 2.5 mg/dL (2.7-4.5); Potassium 3.4 mEq/L (3.5-5.1); Total Protein 5.6 g/dL (6.4-8.9)
[2021-07-30] MEDS: Budesonide/Formoterol 160/4.5 1 PUFF INH IH SCH ×2 (07:33→21:12)
[2021-07-30] MEDS: D5% in 0.45% NACL w KCl 20 MEQ/1,000 ML MLS IVC SCH (08:56)
[2021-07-30] MEDS: Levothyroxine Sodium 100 MCG VIAL IVP SCH (08:58)
[2021-07-30] MEDS: Ondansetron 4 MG/2 ML VIAL IVP PRN (08:58)
[2021-07-30] MEDS: Phenytoin 100 MG in Equashield Syringe 1 EACH IVP SCH ×2 (09:00→21:26)
[2021-07-30] MEDS ORDERED: Potassium Phosphate 44 MEQ in 0.9 % Sodium Chloride 250 ML IVPB ONE (14:41)
[2021-07-30] MEDS ORDERED: Clinimix E 5%-15% SOLUTION 2,000 ML with MVI, adult with vitamin K 10 ML IVC SCH (17:00)
[2021-07-30] MEDS: Ampicillin/Sulbactam 1,500 MG in 0.9 % Sodium Chloride Mini Bag 100 ML IVPB SCH ×2 (17:01→23:43)
[2021-07-31] MEDS: Insulin LISPRO 300 UNITS/3 ML VIAL SUBQ SCH ×6 (02:57→20:23)
[2021-07-31] MEDS: D5% in 0.45% NACL w KCl 20 MEQ/1,000 ML MLS IVC SCH ×3 (02:58→15:06)
[2021-07-31] MEDS: Ipratropium/Albuterol Neb 3 ML IH SCH ×4 (04:19→20:28)
[2021-07-31 04:49] LABS: Hematocrit 26.5 % (37.5-50.1); Hemoglobin 8.2 g/dL (12.9-16.9); Mean Corpuscular HGB Conc 30.9 g/dL (31.6-35.5); Mean Corpuscular Hemoglobin 29.9 pg (28.0-33.3); Mean Corpuscular Volume 96.7 fL (83.0-100.0); Mean Platelet Volume 10.3 fL (9.4-12.4); Platelet Count 164 K/mcL (140-400); Red Blood Count 2.74 M/mcL (4.19-5.50); Red Cell Distribution Width 19.3 % (11.5-14.5); White Blood Count 8.3 K/mcL (4.3-11.1)
[2021-07-31 04:53] LABS: Albumin 2.7 g/dL (3.5-5.7); Albumin/Globulin Ratio 0.8 (1.1-2.2); Bilirubin,Total 2.8 mg/dL (0.3-1.0); Calcium 8.1 mg/dL (8.6-10.3); Globulin 3.2 g/dL (2.4-3.5); Magnesium 2.1 mg/dL (1.6-2.6); Phosphorous 3.8 mg/dL (2.7-4.5); Potassium 3.4 mEq/L (3.5-5.1); Total Protein 5.9 g/dL (6.4-8.9)
[2021-07-31] MEDS: Ampicillin/Sulbactam 1,500 MG in 0.9 % Sodium Chloride Mini Bag 100 ML IVPB SCH ×3 (05:49→18:12)
[2021-07-31] MEDS: Pantoprazole 40 MG VIAL IVP SCH ×2 (05:50→18:12)
[2021-07-31] MEDS ORDERED: Ipratropium Neb 0.5 MG NEBULIZER IH PRN (07:11)
[2021-07-31] MEDS ORDERED: *HR* FentaNYL (PF) 100 MCG/2 ML VIAL IVP PRN (07:11)
[2021-07-31] MEDS ORDERED: *HR* HYDROmorphone PF 0.5 MG/0.5 ML SYRINGE IVP PRN (07:11)
[2021-07-31] MEDS ORDERED: *HR* FentaNYL (PF) 100 MCG/2 ML VIAL ONE (07:30)
[2021-07-31] MEDS ORDERED: *HR* Propofol 200 MG/20 ML VIAL IVP ONE (07:30)
[2021-07-31] MEDS ORDERED: *HR* Succinylcholine 200 MG/10 ML VIAL IVP ONE (07:32)
[2021-07-31] MEDS ORDERED: Lidocaine -MPF 2% 5 ML VIAL ONE (07:32)
[2021-07-31] MEDS ORDERED: *HR* Rocuronium Bromide 50 MG/5 ML VIAL ONE ×2 (07:32→08:22)
[2021-07-31] MEDS ORDERED: Ondansetron 4 MG/2 ML VIAL ONE ×2 (07:32→07:46)
[2021-07-31] MEDS ORDERED: *HR* Phenylephrine 10 MG/ML VIAL ONE (07:33)
[2021-07-31] MEDS ORDERED: Albumin Human 5% 25.0 GM/500 ML IV.SOLN ONE (07:38)
[2021-07-31] MEDS ORDERED: *HR* Vasopressin 20 UNIT/ML VIAL ONE (07:38)
[2021-07-31] MEDS ORDERED: Heparin 1,000 UNITS/500 mL 500 ML ONE (07:38)
[2021-07-31] MEDS ORDERED: Norepinephrine 4 MG/254 ML IV.SOLN IVC SCH (07:45)
[2021-07-31] MEDS ORDERED: *HR* HYDROMORPHONE 2 MG/ML VIAL ONE (09:59)
[2021-07-31] MEDS ORDERED: Ringers Solution, Lactated 1,000 ML ONE (10:36)
[2021-07-31] MEDS: Budesonide/Formoterol 160/4.5 1 PUFF INH IH SCH ×2 (11:31→20:28)
[2021-07-31] MEDS ORDERED: D10% in Water 500 ML IVC PRN (11:32)
[2021-07-31] MEDS ORDERED: Clinimix E 5%-15% SOLUTION 2,000 ML with MVI, adult with vitamin K 10 ML IVC SCH ×3 (11:32→17:00)
[2021-07-31] MEDS ORDERED: Fat Emulsion 250 ML IVPB SCH (11:32)
[2021-07-31] MEDS ORDERED: Ondansetron 4 MG/2 ML VIAL IVP PRN (11:32)
[2021-07-31] MEDS ORDERED: D5% in Water 1,000 ML IVC PRN (11:32)
[2021-07-31] MEDS ORDERED: Naloxone 0.4 MG/ML INJ IVP PRN (11:32)
[2021-07-31] MEDS ORDERED: Saliva Stimulant 44.3ml BOTTLE PO PRN (11:32)
[2021-07-31] MEDS ORDERED: Dextrose Gel 15 GM/37.5 ML TUBE PO PRN ×2 (11:32)
[2021-07-31] MEDS ORDERED: *HR* Dextrose 50 % in Water (Syg) 50 ML SYRINGE IVP PRN (11:32)
[2021-07-31] MEDS ORDERED: Chloraseptic Spray 177 ML BOTTLE MM PRN (11:32)
[2021-07-31] MEDS: Bisacodyl 10 MG RECTAL SUPPOSITORY RC SCH (14:40)
[2021-07-31] MEDS: Metoclopramide 10 MG/2 ML VIAL IVP SCH ×2 (14:47→20:34)
[2021-07-31] MEDS: Phenytoin 100 MG in Equashield Syringe 1 EACH IVP SCH ×2 (15:07→20:38)
[2021-07-31] MEDS: Levothyroxine Sodium 100 MCG VIAL IVP SCH (15:07)
[2021-07-31] MEDS ORDERED: Acetaminophen IV 1,000 MG/100 ML BAG IVPB ONE ×2 (15:11→20:55)
[2021-08-01] MEDS: Ampicillin/Sulbactam 1,500 MG in 0.9 % Sodium Chloride Mini Bag 100 ML IVPB SCH ×4 (01:04→16:01)
[2021-08-01] MEDS: D5% in 0.45% NACL w KCl 20 MEQ/1,000 ML MLS IVC SCH ×2 (01:23→12:20)
[2021-08-01] MEDS: Insulin LISPRO 300 UNITS/3 ML VIAL SUBQ SCH ×6 (01:25→21:15)
[2021-08-01] MEDS: Metoclopramide 10 MG/2 ML VIAL IVP SCH ×5 (03:28→20:43)
[2021-08-01] MEDS: Ipratropium/Albuterol Neb 3 ML IH SCH ×4 (04:04→20:19)
[2021-08-01] MEDS: Pantoprazole 40 MG VIAL IVP SCH ×2 (05:44→16:00)
[2021-08-01] MEDS: Phenytoin 100 MG in Equashield Syringe 1 EACH IVP SCH ×2 (09:33→20:46)
[2021-08-01] MEDS: Levothyroxine Sodium 100 MCG VIAL IVP SCH (09:36)
[2021-08-01] MEDS: Bisacodyl 10 MG RECTAL SUPPOSITORY RC SCH (09:38)
[2021-08-01 10:24] LABS: Albumin 2.7 g/dL (3.5-5.7); Albumin/Globulin Ratio 0.9 (1.1-2.2); Bilirubin,Total 2.1 mg/dL (0.3-1.0); Calcium 7.7 mg/dL (8.6-10.3); Globulin 2.9 g/dL (2.4-3.5); Magnesium 1.9 mg/dL (1.6-2.6); Phosphorous 2.3 mg/dL (2.7-4.5); Potassium 3.3 mEq/L (3.5-5.1); Total Protein 5.6 g/dL (6.4-8.9)
[2021-08-01] MEDS: Budesonide/Formoterol 160/4.5 1 PUFF INH IH SCH ×2 (10:51→20:19)
[2021-08-01] MEDS ORDERED: Clinimix E 5%-15% SOLUTION 2,000 ML with MVI, adult with vitamin K 10 ML IVC SCH (17:00)
[2021-08-02] MEDS: Ampicillin/Sulbactam 1,500 MG in 0.9 % Sodium Chloride Mini Bag 100 ML IVPB SCH ×2 (00:08→06:14)
[2021-08-02] MEDS: Insulin LISPRO 300 UNITS/3 ML VIAL SUBQ SCH ×6 (00:08→20:51)
[2021-08-02] MEDS: Metoclopramide 10 MG/2 ML VIAL IVP SCH ×4 (02:54→20:59)
[2021-08-02 03:22] LABS: Hematocrit 27.6 % (37.5-50.1); Hemoglobin 8.2 g/dL (12.9-16.9)
[2021-08-02 04:11] LABS: Albumin 2.7 g/dL (3.5-5.7); Albumin/Globulin Ratio 0.9 (1.1-2.2); Bilirubin,Total 2.1 mg/dL (0.3-1.0); Calcium 7.8 mg/dL (8.6-10.3); Magnesium 1.9 mg/dL (1.6-2.6); Phosphorous 2.5 mg/dL (2.7-4.5); Potassium 3.3 mEq/L (3.5-5.1); Total Protein 5.7 g/dL (6.4-8.9)
[2021-08-02] MEDS: Ipratropium/Albuterol Neb 3 ML IH SCH ×4 (04:18→20:04)
[2021-08-02] MEDS: Pantoprazole 40 MG VIAL IVP SCH ×2 (06:14→17:29)
[2021-08-02] MEDS ORDERED: Potassium Phosphate 44 MEQ in 0.9 % Sodium Chloride 250 ML IVPB ONE (07:37)
[2021-08-02] MEDS: Levothyroxine Sodium 100 MCG VIAL IVP SCH (09:27)
[2021-08-02] MEDS: Bisacodyl 10 MG RECTAL SUPPOSITORY RC SCH (09:28)
[2021-08-02] MEDS: Phenytoin 100 MG in Equashield Syringe 1 EACH IVP SCH ×2 (09:30→20:59)
[2021-08-02] MEDS: Budesonide/Formoterol 160/4.5 1 PUFF INH IH SCH ×2 (10:55→20:05)
[2021-08-02] MEDS ORDERED: Clinimix E 5%-15% SOLUTION 2,000 ML with MVI, adult with vitamin K 10 ML IVC SCH (17:00)
[2021-08-03] MEDS: Metoclopramide 10 MG/2 ML VIAL IVP SCH ×4 (03:36→20:08)
[2021-08-03] MEDS: Insulin LISPRO 300 UNITS/3 ML VIAL SUBQ SCH ×6 (03:36→20:04)
[2021-08-03] MEDS: Ipratropium/Albuterol Neb 3 ML IH SCH ×4 (04:04→20:21)
[2021-08-03 04:08] LABS: Alanine Aminotransferase 21 Units/L (7-52); Albumin 2.6 g/dL (3.5-5.7); Albumin/Globulin Ratio 0.9 (1.1-2.2); Aspartate Amino Transferase 20 Units/L (13-39); BUN/Creatinine Ratio 28 (6-26); Bilirubin,Total 1.9 mg/dL (0.3-1.0); Blood Urea Nitrogen 38 mg/dL (8-23); Calcium 7.9 mg/dL (8.6-10.3); Carbon Dioxide 29 mEq/L (23-29); Chloride 107 mEq/L (98-107); Glucose 138 mg/dL (70-105); Magnesium 1.8 mg/dL (1.6-2.6); Osmolality,Calculated 301 (280-300); Phosphorous 2.3 mg/dL (2.7-4.5); Potassium 3.5 mEq/L (3.5-5.1); Sodium 140 mEq/L (136-145); Total Protein 5.6 g/dL (6.4-8.9); eGFR For African Americans > 60 (> 60); eGFR For Non-African Americans 51 (> 60)
[2021-08-03 05:44] LABS: Alkaline Phosphatase 127 Units/L (34-104)
[2021-08-03] MEDS: Pantoprazole 40 MG VIAL IVP SCH ×2 (06:26→17:00)
[2021-08-03] MEDS: Levothyroxine Sodium 100 MCG VIAL IVP SCH (08:37)
[2021-08-03] MEDS: Bisacodyl 10 MG RECTAL SUPPOSITORY RC SCH (08:38)
[2021-08-03] MEDS: Phenytoin 100 MG in Equashield Syringe 1 EACH IVP SCH ×2 (09:43→20:06)
[2021-08-03] MEDS: Budesonide/Formoterol 160/4.5 1 PUFF INH IH SCH ×2 (10:35→20:21)
[2021-08-03] MEDS: Ringers Solution, Lactated 1,000 ML IVC SCH (14:22)
[2021-08-03] MEDS ORDERED: Clinimix E 5%-15% SOLUTION 2,000 ML with MVI, adult with vitamin K 10 ML IVC SCH (17:00)
[2021-08-04] MEDS: Insulin LISPRO 300 UNITS/3 ML VIAL SUBQ SCH ×7 (00:21→23:45)
[2021-08-04] MEDS: Metoclopramide 10 MG/2 ML VIAL IVP SCH ×4 (01:49→20:15)
[2021-08-04] MEDS: Ipratropium/Albuterol Neb 3 ML IH SCH ×4 (04:16→19:58)
[2021-08-04] MEDS: Ringers Solution, Lactated 1,000 ML IVC SCH (05:08)
[2021-08-04] MEDS: Pantoprazole 40 MG VIAL IVP SCH ×2 (05:08→18:13)
[2021-08-04 06:52] LABS: Basophils % 0.3 %; Eosinophils # 0.1 K/mcL (0.0-0.6); Eosinophils % 2.3 %; Hematocrit 26.9 % (37.5-50.1); Hemoglobin 7.9 g/dL (12.9-16.9); Immature Granulocytes % 0.7 % (0-4); Lymphocytes # 0.6 K/mcL (0.6-4.6); Lymphocytes % 10.3 %; Mean Corpuscular HGB Conc 29.4 g/dL (31.6-35.5); Mean Corpuscular Hemoglobin 28.9 pg (28.0-33.3); Mean Corpuscular Volume 98.5 fL (83.0-100.0); Mean Platelet Volume 9.9 fL (9.4-12.4); Monocytes # 0.5 K/mcL (0.0-1.3); Neutrophils # 4.5 K/mcL (1.6-8.9); Platelet Count 198 K/mcL (140-400); Red Blood Count 2.73 M/mcL (4.19-5.50); Red Cell Distribution Width 17.7 % (11.5-14.5); Segmented Neutrophils % 78.4 %; White Blood Count 5.7 K/mcL (4.3-11.1)
[2021-08-04 07:04] LABS: Alanine Aminotransferase 22 Units/L (7-52); Albumin 2.6 g/dL (3.5-5.7); Albumin/Globulin Ratio 0.9 (1.1-2.2); Alkaline Phosphatase 129 Units/L (34-104); Aspartate Amino Transferase 25 Units/L (13-39); BUN/Creatinine Ratio 30 (6-26); Bilirubin,Total 1.7 mg/dL (0.3-1.0); Blood Urea Nitrogen 38 mg/dL (8-23); Calcium 7.9 mg/dL (8.6-10.3); Carbon Dioxide 27 mEq/L (23-29); Chloride 110 mEq/L (98-107); Globulin 2.9 g/dL (2.4-3.5); Glucose 146 mg/dL (70-105); Magnesium 1.8 mg/dL (1.6-2.6); Osmolality,Calculated 300 (280-300); Phosphorous 3.2 mg/dL (2.7-4.5); Potassium 3.8 mEq/L (3.5-5.1); Sodium 139 mEq/L (136-145); Total Protein 5.5 g/dL (6.4-8.9); eGFR For African Americans > 60 (> 60); eGFR For Non-African Americans 57 (> 60)
[2021-08-04] MEDS: Budesonide/Formoterol 160/4.5 1 PUFF INH IH SCH ×2 (07:34→19:58)
[2021-08-04] MEDS: Levothyroxine Sodium 100 MCG VIAL IVP SCH (09:25)
[2021-08-04] MEDS: Phenytoin 100 MG in Equashield Syringe 1 EACH IVP SCH ×2 (09:25→20:13)
[2021-08-04] MEDS: Bisacodyl 10 MG RECTAL SUPPOSITORY RC SCH (09:53)
[2021-08-04] MEDS ORDERED: Clinimix E 5%-20% SOLUTION 2,000 ML, Parenteral Amino Acid 10% 200 ML with MVI, adult ... IVC SCH (17:00)
[2021-08-05] MEDS: Metoclopramide 10 MG/2 ML VIAL IVP SCH ×4 (02:55→20:32)
[2021-08-05] MEDS: Ipratropium/Albuterol Neb 3 ML IH SCH ×4 (03:51→21:25)
[2021-08-05] MEDS: Insulin LISPRO 300 UNITS/3 ML VIAL SUBQ SCH ×4 (05:49→17:30)
[2021-08-05] MEDS: Pantoprazole 40 MG VIAL IVP SCH ×2 (06:36→17:34)
[2021-08-05 06:52] LABS: Basophils % 0.3 %; Eosinophils # 0.1 K/mcL (0.0-0.6); Eosinophils % 2.1 %; Hematocrit 25.5 % (37.5-50.1); Hemoglobin 7.5 g/dL (12.9-16.9); Immature Granulocytes % 1.1 % (0-4); Lymphocytes # 0.5 K/mcL (0.6-4.6); Lymphocytes % 7.8 %; Mean Corpuscular HGB Conc 29.4 g/dL (31.6-35.5); Mean Corpuscular Volume 98.5 fL (83.0-100.0); Mean Platelet Volume 9.7 fL (9.4-12.4); Monocytes # 0.5 K/mcL (0.0-1.3); Monocytes % 7.2 %; Neutrophils # 5.3 K/mcL (1.6-8.9); Platelet Count 210 K/mcL (140-400); Red Blood Count 2.59 M/mcL (4.19-5.50); Red Cell Distribution Width 17.4 % (11.5-14.5); Segmented Neutrophils % 81.5 %; White Blood Count 6.5 K/mcL (4.3-11.1)
[2021-08-05 07:16] LABS: Alanine Aminotransferase 26 Units/L (7-52); Albumin 2.4 g/dL (3.5-5.7); Albumin/Globulin Ratio 0.9 (1.1-2.2); Alkaline Phosphatase 129 Units/L (34-104); Aspartate Amino Transferase 29 Units/L (13-39); BUN/Creatinine Ratio 35 (6-26); Bilirubin,Total 1.5 mg/dL (0.3-1.0); Blood Urea Nitrogen 36 mg/dL (8-23); Calcium 7.8 mg/dL (8.6-10.3); Carbon Dioxide 28 mEq/L (23-29); Chloride 108 mEq/L (98-107); Globulin 2.7 g/dL (2.4-3.5); Glucose 166 mg/dL (70-105); Magnesium 1.9 mg/dL (1.6-2.6); Osmolality,Calculated 300 (280-300); Potassium 3.8 mEq/L (3.5-5.1); Sodium 139 mEq/L (136-145); Total Protein 5.1 g/dL (6.4-8.9); Triglycerides 132 mg/dL (< 150); eGFR For African Americans > 60 (> 60); eGFR For Non-African Americans > 60 (> 60)
[2021-08-05] MEDS: Budesonide/Formoterol 160/4.5 1 PUFF INH IH SCH ×2 (07:37→21:25)
[2021-08-05] MEDS: Phenytoin 100 MG in Equashield Syringe 1 EACH IVP SCH ×2 (09:02→20:34)
[2021-08-05] MEDS: Levothyroxine Sodium 100 MCG VIAL IVP SCH (09:02)
[2021-08-05] MEDS ORDERED: Clinimix E 5%-20% SOLUTION 2,000 ML, Parenteral Amino Acid 10% 200 ML with MVI, adult ... IVC SCH (17:00)
[2021-08-05] MEDS: Fat Emulsion 250 ML IVPB SCH (17:34)
[2021-08-06 02:14] LABS: Eosinophils % 2.3 %; Hematocrit 24.5 % (37.5-50.1); Hemoglobin 7.6 g/dL (12.9-16.9); Immature Granulocytes % 1.3 % (0-4); Lymphocytes % 7.8 %; Mean Corpuscular Hemoglobin 30.8 pg (28.0-33.3); Mean Corpuscular Volume 99.2 fL (83.0-100.0); Mean Platelet Volume 9.7 fL (9.4-12.4); Monocytes % 5.4 %; Platelet Count 238 K/mcL (140-400); Red Blood Count 2.47 M/mcL (4.19-5.50); Red Cell Distribution Width 17.3 % (11.5-14.5); Segmented Neutrophils % 82.9 %; White Blood Count 7.8 K/mcL (4.3-11.1)
[2021-08-06 02:15] LABS: Basophils % 0.3 %; Eosinophils # 0.2 K/mcL (0.0-0.6); Lymphocytes # 0.6 K/mcL (0.6-4.6); Monocytes # 0.4 K/mcL (0.0-1.3); Neutrophils # 6.5 K/mcL (1.6-8.9)
[2021-08-06 02:37] LABS: Alanine Aminotransferase 25 Units/L (7-52); Albumin 2.4 g/dL (3.5-5.7); Albumin/Globulin Ratio 0.9 (1.1-2.2); Alkaline Phosphatase 128 Units/L (34-104); Aspartate Amino Transferase 22 Units/L (13-39); BUN/Creatinine Ratio 34 (6-26); Bilirubin,Total 1.3 mg/dL (0.3-1.0); Blood Urea Nitrogen 35 mg/dL (8-23); Calcium 7.7 mg/dL (8.6-10.3); Carbon Dioxide 26 mEq/L (23-29); Chloride 108 mEq/L (98-107); Globulin 2.8 g/dL (2.4-3.5); Glucose 151 mg/dL (70-105); Magnesium 1.8 mg/dL (1.6-2.6); Osmolality,Calculated 299 (280-300); Phosphorous 2.8 mg/dL (2.7-4.5); Potassium 3.7 mEq/L (3.5-5.1); Sodium 139 mEq/L (136-145); Total Protein 5.2 g/dL (6.4-8.9); eGFR For African Americans > 60 (> 60); eGFR For Non-African Americans > 60 (> 60)
[2021-08-06] MEDS: Metoclopramide 10 MG/2 ML VIAL IVP SCH ×4 (02:44→20:47)
[2021-08-06] MEDS: Insulin LISPRO 300 UNITS/3 ML VIAL SUBQ SCH ×5 (02:56→17:30)
[2021-08-06] MEDS: Ipratropium/Albuterol Neb 3 ML IH SCH ×4 (03:46→20:37)
[2021-08-06] MEDS: Pantoprazole 40 MG VIAL IVP SCH ×2 (06:36→18:21)
[2021-08-06] MEDS: Levothyroxine Sodium 100 MCG VIAL IVP SCH (10:06)
[2021-08-06] MEDS: Phenytoin 100 MG in Equashield Syringe 1 EACH IVP SCH ×2 (10:11→20:48)
[2021-08-06] MEDS: Budesonide/Formoterol 160/4.5 1 PUFF INH IH SCH ×2 (10:49→20:37)
[2021-08-06] MEDS: Fat Emulsion 250 ML IVPB SCH (17:57)
[2021-08-07] MEDS: Metoclopramide 10 MG/2 ML VIAL IVP SCH ×2 (02:04→10:15)
[2021-08-07 02:22] LABS: Basophils % 0.3 %; Eosinophils # 0.1 K/mcL (0.0-0.6); Eosinophils % 1.9 %; Hematocrit 24.6 % (37.5-50.1); Hemoglobin 7.4 g/dL (12.9-16.9); Immature Granulocytes % 1.6 % (0-4); Lymphocytes # 0.6 K/mcL (0.6-4.6); Lymphocytes % 8.4 %; Mean Corpuscular HGB Conc 30.1 g/dL (31.6-35.5); Mean Corpuscular Hemoglobin 29.4 pg (28.0-33.3); Mean Corpuscular Volume 97.6 fL (83.0-100.0); Mean Platelet Volume 9.4 fL (9.4-12.4); Monocytes # 0.4 K/mcL (0.0-1.3); Monocytes % 5.1 %; Neutrophils # 6.1 K/mcL (1.6-8.9); Platelet Count 222 K/mcL (140-400); Red Blood Count 2.52 M/mcL (4.19-5.50); Red Cell Distribution Width 17.7 % (11.5-14.5); Segmented Neutrophils % 82.7 %; White Blood Count 7.4 K/mcL (4.3-11.1)
[2021-08-07 02:41] LABS: Alanine Aminotransferase 24 Units/L (7-52); Albumin 2.4 g/dL (3.5-5.7); Albumin/Globulin Ratio 0.9 (1.1-2.2); Alkaline Phosphatase 140 Units/L (34-104); Aspartate Amino Transferase 24 Units/L (13-39); BUN/Creatinine Ratio 28 (6-26); Bilirubin,Total 1.3 mg/dL (0.3-1.0); Blood Urea Nitrogen 32 mg/dL (8-23); Calcium 7.7 mg/dL (8.6-10.3); Carbon Dioxide 27 mEq/L (23-29); Chloride 108 mEq/L (98-107); Globulin 2.8 g/dL (2.4-3.5); Glucose 94 mg/dL (70-105); Magnesium 1.7 mg/dL (1.6-2.6); Osmolality,Calculated 295 (280-300); Potassium 3.9 mEq/L (3.5-5.1); Sodium 139 mEq/L (136-145); Total Protein 5.2 g/dL (6.4-8.9); eGFR For African Americans > 60 (> 60); eGFR For Non-African Americans > 60 (> 60)
[2021-08-07] MEDS: Ipratropium/Albuterol Neb 3 ML IH SCH ×4 (03:53→20:11)
[2021-08-07] MEDS: Pantoprazole 40 MG VIAL IVP SCH (06:16)
[2021-08-07] MEDS ORDERED: Metoclopramide 10 MG/2 ML VIAL IVP PRN (08:58)
[2021-08-07] MEDS: Insulin LISPRO 300 UNITS/3 ML VIAL SUBQ SCH ×3 (09:31→16:34)
[2021-08-07] MEDS: Aspirin Enteric Coated 81 MG Tablet PO SCH (09:31)
[2021-08-07] MEDS: Cholecalciferol (D-3) 1,000 UNIT (25MCG) TABLET PO SCH (09:31)
[2021-08-07] MEDS: Budesonide/Formoterol 160/4.5 1 PUFF INH IH SCH ×2 (09:52→20:10)
[2021-08-08] MEDS: Ipratropium/Albuterol Neb 3 ML IH SCH ×2 (04:00→10:44)
[2021-08-08 08:14] VITALS: BP 128/72; PULSE 85; TEMP 98.8
[2021-08-08] MEDS: Insulin LISPRO 300 UNITS/3 ML VIAL SUBQ SCH ×2 (08:22→12:53)
[2021-08-08] MEDS: Cholecalciferol (D-3) 1,000 UNIT (25MCG) TABLET PO SCH (08:23)
[2021-08-08] MEDS: Aspirin Enteric Coated 81 MG Tablet PO SCH (08:23)
[2021-08-08 10:32] VITALS: O2SAT 100
[2021-08-08] MEDS: Budesonide/Formoterol 160/4.5 1 PUFF INH IH SCH (10:44)
== END 2021-08-08 13:14 | disposition home health service (06) | DRG 853 ==
LOC: ICNU 08:41 → EMEROOARM 08:41 → ICNU 11:51 → SUATTDRO 12:04 → 2ANU 07-24 13:19
PROVIDERS: ADMIT Family Medicine; ATTEND Internal Medicine
PROC: ENDOEUS (2021-07-25 13:30)